=== PATIENT | male | born 1990 | race American Indian/Alaskan Native ===

== ENCOUNTER 2016-09-30 01:59 | Emergency (ER) | payer SELFPAY ==
[2016-09-30 03:24] LABS: Bilirubin,Urine NEG (Negative); Blood,Urine NEG (Negative); Ketones,Urine TR mg/dL (Negative); Leukocyte Esterase,Urine NEG (Negative); Mucus,Urine 2+ /HPF; Nitrite,Urine NEG (Negative); Protein,Urine <15 mg/dL mg/dL (Negative)
[2016-09-30 07:24] VITALS: BP 118/70
--- NOTE | 2016-09-30 07:32 | Emergency Department Report ---
ED Male HPI - General Chief complaint: Urogenital-Male Stated complaint: HEADACHE, BODY PAIN Time Seen by Provider: 09/30/16 07:03 Source: patient Mode of arrival: Ambulatory Limitations: No Limitations - History of Present Illness Initial comments: Patient here complaining of sore throat, denies any swelling of throat or difficulty swallowing. Denies any shortness of breath or coughing. Denies any fever or chills. Status post that the main reason he is here is because his partner told him to go and get tested because his partner has Trichomonas. Patient denies any penile discharge, lesion or rash. Denies any burning with urination. Denies any abdominal, back pain or testicular pain. Denies any nausea or vomiting. MD Complaint: other (STD concerns) Onset/Timin -: days(s) (sore throat) Radiation: none Severity: mild Severity scale (0 -10): 4 Quality: burning Consistency: intermittent Improves with: rest Worsens with: other (swallowing) new sexual partner ( new sexual partner that has trichomonas) denies: discharge, swelling, mass, rash, urinary retention, blood in urine, dysuria, fever, nausea/vomiting, incontinence - Related Data Sexually active: Yes Previous Rx's Medication Instructions Recorded Last Taken Type Cetirizine HCl [ZyrTEC] 10 mg PO QDAY #14 capsule 09/30/16 Unknown Rx Fluticasone [Flonase] 1 spray NS QDAY #1 bottle 09/30/16 Unknown Rx Allergies Allergy/AdvReac Type Severity Reaction Status Date / Time No Known Allergies Allergy Unverified 09/30/16 02:35 ED Review of Systems ROS: Stated complaint: HEADACHE, BODY PAIN Other details as noted in HPI Comment: All other systems reviewed and negative Constitutional: denies: chills, fever Eyes: denies: eye discharge ENT: throat pain, congestion. denies: ear pain Respiratory: no symptoms reported Cardiovascular: denies: chest pain, palpitations, edema, syncope Gastrointestinal: denies: abdominal pain, nausea, vomiting Genitourinary: denies: urgency, dysuria, frequency, hematuria, discharge, testicular pain, testicular mass Skin: denies: rash Neurological: denies: headache, weakness, numbness, paresthesias, confusion, abnormal gait, vertigo ED Past Medical Hx - Past Medical History Previous Medical History?: No - Surgical History Past Surgical History?: No - Family History Family history: no significant - Social History Smoking Status: Never Smoker Substance Use Type: None - Medications Home Medications: Home Medications Medication Instructions Recorded Confirmed Last Taken Type Cetirizine HCl [ZyrTEC] 10 mg PO QDAY #14 capsule 09/30/16 Unknown Rx Fluticasone [Flonase] 1 spray NS QDAY #1 bottle 09/30/16 Unknown Rx ED Physical Exam - General Limitations: No Limitations General appearance: alert, in no apparent distress - Head Head exam: Present: atraumatic, normocephalic, normal inspection - Eye Eye exam: Present: normal appearance, PERRL, EOMI. Absent: scleral icterus, conjunctival injection, periorbital swelling, periorbital tenderness Pupils: Present: normal accommodation - ENT ENT exam: Present: normal exam, normal orophraynx, mucous membranes moist, TM's normal bilaterally (bilateral TM congested without erythema), normal external ear exam, other (bilateral nasal mucosa congested with erythema. Maxillary and frontal sinuses nontender to palpate) - Neck Neck exam: Present: normal inspection, full ROM. Absent: tenderness, lymphadenopathy - Respiratory Respiratory exam: Present: normal lung sounds bilaterally. Absent: respiratory distress, chest wall tenderness - Cardiovascular Cardiovascular Exam: Present: regular rate, normal rhythm, normal heart sounds - GI/Abdominal GI/Abdominal exam: Present: soft, normal bowel sounds. Absent: distended, tenderness, guarding, rebound, rigid - Extremities Exam Extremities exam: Present: normal inspection, full ROM, normal capillary refill. Absent: tenderness, pedal edema, joint swelling, calf tenderness - Back Exam Back exam: Present: normal inspection, full ROM. Absent: tenderness, CVA tenderness (R), CVA tenderness (L), muscle spasm, paraspinal tenderness, vertebral tenderness, rash noted - Neurological Exam Neurological exam: Present: alert, oriented X3, normal gait, reflexes normal. Absent: motor sensory deficit - Psychiatric Psychiatric exam: Present: normal affect, normal mood - Skin Skin exam: Present: warm, dry, intact, normal color. Absent: rash ED Course Vital Signs 09/30/16 09/30/16 02:28 07:22 Temperature 98.3 F Pulse Rate 63 71 Respiratory 18 Rate Blood Pressure 125/73 Blood Pressure 118/70 [Left] O2 Sat by Pulse 99 99 Oximetry - Reevaluation(s) Reevaluation #1: 09/30/16 07:57 Patient treated empirically for gonorrhea, Chlamydia and Trichomonas. Patient was given the choice and he chose to be treated for all 3 STDs. ED Medical Decision Making - Lab Data Lab Results 09/30/16 Range/Units 02:55 Urine Color Yellow (Yellow) Urine Turbidity Clear (Clear) Urine pH 5.0 (5.0-7.0) Ur Specific [place] 1.027 (1.003-1.030) Urine Protein <15 mg/dl (Negative) mg/dL Urine Glucose (UA) Neg (Negative) mg/dL Urine Ketones Tr (Negative) mg/dL Urine Blood Neg (Negative) Urine Nitrite Neg (Negative) Urine Bilirubin Neg (Negative) Urine Urobilinogen 2.0 (<2.0) mg/dL Ur Leukocyte Esterase Neg (Negative) Urine WBC (Auto) 2.0 (0.0-6.0) /HPF Urine RBC (Auto) 3.0 (0.0-6.0) /HPF Urine Mucus 2+ /HPF - Medical Decision Making ED course: Patient here with diagnosis of concerns for STD and chose to be treated empirically for Trichomonas, gonorrhea and chlamydia. His partner was tested positive for Trichomonas. Patient is asymptomatic. He is also diagnosed with upper respiratory tract infection. I informed patient that he needs to go to [facility] in 7-10 days to have tested all STDs. I also instructed her to refrain from having sexual activity for 2 weeks and also not to drink alcohol for 7 days as this could have a negative effect with medication as given for Trichomonas. I discussed with him that his urine test was negative for bacteria. I also discussed safe sex practices with him. Patient was understanding of need to follow-up, diagnosis and treatment plan and discharged home in stable condition. Discharged home with prescription for Zyrtec and Flonase to treat upper respiratory tract infection Critical care attestation.: If time is entered above; I have spent that time in minutes in the direct care of this critically ill patient, excluding procedure time. ED Disposition Clinical Impression: Concern about STD in male without diagnosis Upper respiratory tract infection Qualifiers: URI type: unspecified URI Qualified Code(s): J06.9 - Acute upper respiratory infection, unspecified Disposition: DISCHARGED TO HOME OR SELFCARE Is pt being admited?: No Does the pt Need Aspirin: No Condition: Stable Instructions: Safe Sex (ED), Trichomoniasis (ED), Sexually Transmitted Diseases (ED), Upper Respiratory Infection (ED) Additional Instructions: Increase her fluid intake Back to safe sex [facility] in 7-10 days for STD testing. You were treated for Trichomonas, gonorrhea and Chlamydia in emergency room today. 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 [Outside] - 7-10 days [facility] [Outside] - 7-10 days Forms: Accompanied Note, Work/School Release Form(ED)
[2016-09-30] MEDS ORDERED: ROCEPHIN IM ONE (07:40)
[2016-09-30] MEDS ORDERED: FLAGYL PO ONE (07:40)
[2016-09-30] MEDS ORDERED: ZITHROMAX PO ONE (07:40)
[2016-09-30] MEDS ORDERED: XYLOCAINE 1% MPF 5 mL INFILTRATI ONE (07:40)
== END 2016-09-30 08:15 | disposition home or self-care (01) ==
LOC: ED 01:59
DX: J06.9 Acute upper respiratory infection, unspecified (principal)
CPT/HCPCS: 81001; 96372; 99283; J0696

== ENCOUNTER 2017-05-22 12:05 | Emergency (ER) | payer SELFPAY ==
[2017-05-22 12:13] VITALS: BP 135/53
--- NOTE | 2017-05-22 15:13 | Emergency Department Report ---
HPI - General Chief Complaint: Medical Clearance Time Seen by Provider: 05/22/17 14:47 - HPI HPI: he is a 27-year-old male with no problem medical history who presents to ED stating that he got a call from his sex partner that she has trichomoniasis. Patient states last time he had sexual encounter with the patient was 4 days ago. Patient denies dysuria, penile pain, penile discharge, score of swelling of scrotum pain or any lesions in the genital region. ED Past Medical Hx - Past Medical History Previous Medical History?: No - Surgical History Past Surgical History?: No - Social History Smoking Status: Current Every Day Smoker Substance Use Type: Alcohol, Marijuana - Medications Home Medications: Home Medications Medication Instructions Recorded Confirmed Last Taken Type Cetirizine HCl [ZyrTEC] 10 mg PO QDAY #14 capsule 09/30/16 Unknown Rx Fluticasone [Flonase] 1 spray NS QDAY #1 bottle 09/30/16 Unknown Rx Ciprofloxacin HCl [Ciprofloxacin 500 mg PO Q12HR #14 tab 05/22/17 Unknown Rx TAB] ED Review of Systems ROS: Stated complaint: STD TESTING Other details as noted in HPI Constitutional: denies: chills, fever Eyes: denies: eye pain, eye discharge, vision change ENT: denies: ear pain, throat pain Respiratory: denies: cough, shortness of breath, wheezing Cardiovascular: denies: chest pain, palpitations Endocrine: no symptoms reported Gastrointestinal: denies: abdominal pain, nausea, diarrhea Genitourinary: denies: urgency, dysuria Musculoskeletal: denies: back pain, joint swelling, arthralgia Skin: denies: rash, lesions Neurological: denies: headache, weakness, paresthesias Psychiatric: denies: anxiety, depression Hematological/Lymphatic: denies: easy bleeding, easy bruising Physical Exam - Physical Exam Vital Signs: Vital Signs 05/22/17 12:11 Temperature 97.5 F L Pulse Rate 6 L Respiratory 16 Rate Blood Pressure 135/53 O2 Sat by Pulse 100 Oximetry Physical Exam: GENERAL: Alert and oriented x3, no apparent distress, Normal Gait, atraumatic. HEAD: Head is normocephalic and a-traumatic. LUNGS: Symetrical with respiration, No wheezing, no rales or crackles, CTAB. HEART: S1, S2 present, regular rate and rhythm without murmur, no rubs, no gallops. Non tender to palpation ABDOMEN: No organomegaly was noted,Positive bowel sounds, soft, and non- distended. Nontender to palpation on all Quadrants, NO CVA tenderness. UROGENITAL: No scrotal mass, Scrotum non tender to palpation bilaterally, no hernia, no scars or penile discharge. SKIN: Warm and dry, No lesions, No ulceration or induration present. ED Course Vital Signs 05/22/17 12:11 Temperature 97.5 F L Pulse Rate 6 L Respiratory 16 Rate Blood Pressure 135/53 O2 Sat by Pulse 100 Oximetry ED Medical Decision Making - Medical Decision Making 27-year-old male presents with STD exposure. ED course: Analysis and gonorrhea and Chlamydia cultures obtained. Urinalysis positive for leukorrhea Patient received 250 mg of Rocephin, azithromycin 1 g, Flagyl 2 g. Discussed with patient possible STD due to exposure. Discussed with patient findings and treatment Discussed prophylaxis treatment patient is to abstain from sex 7-10 days as treatment. Discussed patient partner knowledge and treatment. Discussed the follow-up with the health department for further STD testing. Patient's alert and oriented times 3. Vital signs are normal patient is in no acute discharge. Patient will be discharged home with instructions. Critical care attestation.: If time is entered above; I have spent that time in minutes in the direct care of this critically ill patient, excluding procedure time. ED Disposition Clinical Impression: STD (sexually transmitted disease) UTI (urinary tract infection) Qualifiers: Urinary tract infection type: acute cystitis Hematuria presence: with hematuria Qualified Code(s): N30.01 - Acute cystitis with hematuria Disposition: TO HOME OR SELFCARE Is pt being admited?: No Does the pt Need Aspirin: No Condition: Stable Instructions: Sexually Transmitted Diseases (ED), Safe Sex (ED), Trichomoniasis (ED) Additional Instructions: Make sure to follow up with the primary care physician as discussed. Take all your medications as you've been prescribed. If you have any worsening symptoms or develop new symptoms please return to ED immediately. follow-up with the health department for further STD testing. Prescriptions: Ciprofloxacin HCl [Ciprofloxacin TAB] 500 mg PO Q12HR #14 tab Referrals: PRIMARY CARE, [Primary Care Provider] - 3-5 Days [facility] [Outside] - 3-5 Days [facility] [Outside] - 3-5 Days [facility] [place] [Outside] - 3-5 Days Forms: Work/School Release Form(ED) Time of Disposition: 16:20
[2017-05-22 15:27] LABS: Bacteria,Urine 1+ /HPF (Negative); Bilirubin,Urine NEG (Negative); Blood,Urine NEG (Negative); Ketones,Urine NEG (Negative); Leukocyte Esterase,Urine LG (Negative); Mucus,Urine 1+ /HPF; Nitrite,Urine NEG (Negative)
[2017-05-22 15:33] LABS: WBC,Urine > 182.0 /HPF (0.0-6.0)
[2017-05-22] MEDS ORDERED: FLAGYL PO ONE (16:18)
[2017-05-22] MEDS ORDERED: ROCEPHIN IM ONE (16:18)
[2017-05-22] MEDS ORDERED: XYLOCAINE 1% MPF 5 mL INFILTRATI ONE (16:18)
[2017-05-22] MEDS ORDERED: ZITHROMAX PO ONE (16:18)
== END 2017-05-22 17:04 | disposition home or self-care (01) ==
LOC: ED 12:05
DX: A64 Unspecified sexually transmitted disease (principal); N39.0 Urinary tract infection, site not specified; F17.200 Nicotine dependence, unspecified, uncomplicated; F12.10 Cannabis abuse, uncomplicated
CPT/HCPCS: 81001; 87591; 96372; 99283; J0696

== ENCOUNTER 2019-02-14 23:12 | Emergency (ER) | payer SELFPAY ==
[2019-02-14 23:25] VITALS: BP 124/65
[2019-02-15] MEDS ORDERED: DECADRON PO ONE (03:26)
--- NOTE | 2019-02-15 03:31 | Emergency Department Report ---
ED ENT HPI - General Chief complaint: Sore Throat Stated complaint: SORE THROAT Time Seen by Provider: 02/15/19 02:55 Source: patient Mode of arrival: Ambulatory Limitations: No Limitations - History of Present Illness complaint: sore throat, other (also had some voice changes with losing voice often than that. 2. History of a sore throat as well) -: Gradual, week(s) (2) Location: throat Severity: mild Quality: dull, constant Consistency: constant Improves with: none Worsens with: none Associated Symptoms: sore throat - Related Data Previous Rx's Medication Instructions Recorded Last Taken Type Cetirizine HCl [ZyrTEC] 10 mg PO QDAY #14 capsule 09/30/16 Unknown Rx Fluticasone [Flonase] 1 spray NS QDAY #1 bottle 09/30/16 Unknown Rx Ciprofloxacin HCl [Ciprofloxacin 500 mg PO Q12HR #14 tab 05/22/17 Unknown Rx TAB] Amoxicillin [Trimox CAP] 500 mg PO Q8H #30 capsule 02/15/19 Unknown Rx Allergies Allergy/AdvReac Type Severity Reaction Status Date / Time No Known Allergies Allergy Verified 05/22/17 12:11 ED Dental HPI - General Chief complaint: Sore Throat Stated complaint: SORE THROAT Time Seen by Provider: 02/15/19 02:55 Source: patient Mode of arrival: Ambulatory Limitations: No Limitations - History of Present Illness MD complaint: sore throat Quality: dull Consistency: constant Improves with: none Worsens with: swallowing, chewing - Related Data Previous Rx's Medication Instructions Recorded Last Taken Type Cetirizine HCl [ZyrTEC] 10 mg PO QDAY #14 capsule 09/30/16 Unknown Rx Fluticasone [Flonase] 1 spray NS QDAY #1 bottle 09/30/16 Unknown Rx Ciprofloxacin HCl [Ciprofloxacin 500 mg PO Q12HR #14 tab 05/22/17 Unknown Rx TAB] Amoxicillin [Trimox CAP] 500 mg PO Q8H #30 capsule 02/15/19 Unknown Rx Allergies Allergy/AdvReac Type Severity Reaction Status Date / Time No Known Allergies Allergy Verified 05/22/17 12:11 ED Review of Systems ROS: Stated complaint: SORE THROAT Other details as noted in HPI Comment: All other systems reviewed and negative ED Past Medical Hx - Past Medical History Previous Medical History?: No - Surgical History Past Surgical History?: No - Social History Smoking Status: Current Every Day Smoker - Medications Home Medications: Home Medications Medication Instructions Recorded Confirmed Last Taken Type Cetirizine HCl [ZyrTEC] 10 mg PO QDAY #14 capsule 09/30/16 Unknown Rx Fluticasone [Flonase] 1 spray NS QDAY #1 bottle 09/30/16 Unknown Rx Ciprofloxacin HCl [Ciprofloxacin 500 mg PO Q12HR #14 tab 05/22/17 Unknown Rx TAB] Amoxicillin [Trimox CAP] 500 mg PO Q8H #30 capsule 02/15/19 Unknown Rx ED Physical Exam - General Limitations: No Limitations General appearance: alert, in no apparent distress - Head Head exam: Present: atraumatic, normocephalic - Eye Eye exam: Present: normal appearance, PERRL, EOMI - ENT ENT exam: Present: mucous membranes moist, other (paramedics red, swollen, tender, no exudate. Tongue and uvula are midline) - Neck Neck exam: Present: normal inspection - Respiratory Respiratory exam: Present: normal lung sounds bilaterally. Absent: respiratory distress - Cardiovascular Cardiovascular Exam: Present: regular rate, normal rhythm. Absent: systolic murmur, diastolic murmur, rubs, gallop - GI/Abdominal GI/Abdominal exam: Present: soft, normal bowel sounds - Rectal Rectal exam: Present: deferred - Extremities Exam Extremities exam: Present: normal inspection - Back Exam Back exam: Present: normal inspection - Neurological Exam Neurological exam: Present: alert, oriented X3 - Psychiatric Psychiatric exam: Present: normal affect, normal mood - Skin Skin exam: Present: warm, dry, intact, normal color. Absent: rash ED Course Vital Signs 02/14/19 23:21 Temperature 98.2 F Pulse Rate 72 Respiratory 16 Rate Blood Pressure 124/65 O2 Sat by Pulse 98 Oximetry Critical care attestation.: If time is entered above; I have spent that time in minutes in the direct care of this critically ill patient, excluding procedure time. ED Disposition Clinical Impression: Pharyngitis Disposition: - TO HOME OR SELFCARE Is pt being admited?: No Does the pt Need Aspirin: No Condition: Stable Instructions: Pharyngitis (ED) Prescriptions: Amoxicillin [Trimox CAP] 500 mg PO Q8H #30 capsule Referrals: PRIMARY CARE, [Primary Care Provider] - 3-5 Days [facility] [Provider Group] - 3-5 Days
== END 2019-02-15 03:25 | disposition home or self-care (01) ==
LOC: ED 23:12
DX: J02.9 Acute pharyngitis, unspecified (principal); F17.200 Nicotine dependence, unspecified, uncomplicated; Z79.899 Other long term (current) drug therapy
CPT/HCPCS: 99282; J1100

== ENCOUNTER 2021-02-24 13:43 | Emergency (ER) | payer SELFPAY ==
[2021-02-24 14:06] VITALS: BP 126/89
--- NOTE | 2021-02-24 15:56 | Emergency Department Report ---
ED General Adult HPI - General Chief complaint: Urogenital-Male Stated complaint: STD Time Seen by Provider: 02/24/21 14:41 Source: patient Mode of arrival: Ambulatory Limitations: No Limitations - History of Present Illness Initial comments: 30-year-old -[place] male patient presents with complaints of STD exposure. He reports his sexual partner informed him today that she was positive for trichomonas. He states this morning he did develop mild penile discharge without dysuria/hematuria, testicular/penile pain/swelling, abdominal pain, or painful/swollen joints. He denies any past medical history or fever/chills/sweats. He has not had STI testing. - Related Data Previous Rx's Medication Instructions Recorded Last Taken Type Cetirizine HCl [ZyrTEC] 10 mg PO QDAY #14 capsule 09/30/16 Unknown Rx Fluticasone [Flonase] 1 spray NS QDAY #1 bottle 09/30/16 Unknown Rx Ciprofloxacin HCl [Ciprofloxacin 500 mg PO Q12HR #14 tab 05/22/17 Unknown Rx TAB] Amoxicillin [Trimox CAP] 500 mg PO Q8H #30 capsule 02/15/19 Unknown Rx metroNIDAZOLE [Flagyl] 2,000 mg PO ONCE 1 Days #4 tab 02/24/21 Unknown Rx Allergies Allergy/AdvReac Type Severity Reaction Status Date / Time No Known Allergies Allergy Verified 02/24/21 14:06 ED Review of Systems ROS: Stated complaint: STD Other details as noted in HPI Constitutional: denies: chills, fever, malaise Gastrointestinal: denies: abdominal pain Genitourinary: discharge. denies: urgency, dysuria, frequency, hematuria, testicular pain, testicular mass Skin: denies: rash, lesions, change in color Hematological/Lymphatic: denies: swollen glands ED Past Medical Hx - Past Medical History Previous Medical History?: No - Social History Smoking Status: Never Smoker Substance Use Type: None - Medications Home Medications: Home Medications Medication Instructions Recorded Confirmed Last Taken Type Cetirizine HCl [ZyrTEC] 10 mg PO QDAY #14 capsule 09/30/16 Unknown Rx Fluticasone [Flonase] 1 spray NS QDAY #1 bottle 09/30/16 Unknown Rx Ciprofloxacin HCl [Ciprofloxacin 500 mg PO Q12HR #14 tab 05/22/17 Unknown Rx TAB] Amoxicillin [Trimox CAP] 500 mg PO Q8H #30 capsule 02/15/19 Unknown Rx metroNIDAZOLE [Flagyl] 2,000 mg PO ONCE 1 Days #4 tab 02/24/21 Unknown Rx ED Physical Exam - General Limitations: No Limitations General appearance: alert, in no apparent distress - Head Head exam: Present: atraumatic, normocephalic - Respiratory Respiratory exam: Absent: respiratory distress - Cardiovascular Cardiovascular Exam: Present: regular rate - exam: Present: other (Deferred exam) - Neurological Exam Neurological exam: Present: alert, oriented X3 - Psychiatric Psychiatric exam: Present: normal affect, agitated - Skin Skin exam: Present: warm, dry ED Course Vital Signs 02/24/21 14:04 Temperature 98.0 F Pulse Rate 60 Respiratory 17 Rate Blood Pressure 126/89 [Left] O2 Sat by Pulse 99 Oximetry ED Medical Decision Making - Medical Decision Making 30-year-old -[place] male patient presents with complaints of STD exposure. He reports his sexual partner informed him today that she was positive for trichomonas. He states this morning he did develop mild penile discharge without dysuria/hematuria, testicular/penile pain/swelling, abdominal pain, or painful/swollen joints. He denies any past medical history or fever/chills/sweats. He has not had STI testing. Given known contact with trichomonas, will prescribe Flagyl. Patient informed to follow-up with the health department, an urgent care, or PCP for further STD testing including syphilis and HIV and gonorrhea and chlamydia. His vitals are within normal limits, he is well-appearing, he is stable for discharge home. Strict return precautions were discussed in detail with patient who verbalizes understanding peer Critical care attestation.: If time is entered above; I have spent that time in minutes in the direct care of this critically ill patient, excluding procedure time. ED Disposition Clinical Impression: STD exposure Disposition: HOME / SELF CARE / HOMELESS Is pt being admited?: No Condition: Stable Instructions: Trichomoniasis Prescriptions: metroNIDAZOLE [Flagyl] 2,000 mg PO ONCE 1 Days #4 tab Referrals: [facility] [Provider Group] - 3-5 Days
== END 2021-02-24 17:31 | disposition home or self-care (01) ==
LOC: ED 13:43
DX: Z20.2 Contact with and (suspected) exposure to infections with a predominantly sexual mode of transmission (principal); Z79.899 Other long term (current) drug therapy
CPT/HCPCS: 99282